=== PATIENT | female | born 1980 | race Caucasian/White ===

== ENCOUNTER 2019-08-18 13:28 | Emergency (ER) | payer SELFPAY ==
[2019-08-18 13:45] VITALS: BP 113/72
--- NOTE | 2019-08-18 13:46 | Event Note ---
ED Screening Note Date of service: 08/18/19 Time: 13:45 ED Screening Note: 39 y o f presents with right ankle pain s/p trip and twist yesterday This initial assessment/diagnostic orders/clinical plan/treatment(s) is/are subject to change based on patients health status, clinical progression and re- assessment by fellow clinical providers in the ED. Further treatment and workup at subsequent clinical providers discretion. Patient/guardian urged not to elope from the ED as their condition may be serious if not clinically assessed and managed. Initial orders include: cordell menjivar
--- NOTE | 2019-08-18 14:23 | XRay Report ---
Right ankle, 2 views INDICATION: Pain after fall. COMPARISON: None. IMPRESSION: There is moderate lateral soft tissue swelling. Normal bone mineralization. A chronic u nunited fracture is identified involving the distal tip of the fibula. There is no evidence for acute fracture. No significant joint pathology. Signer Name: Kenji Green Jr, MD Signed: 08/18/2019 2:18 PM Workstation Name: [id number]
[2019-08-18] MEDS ORDERED: HYDROmorphone 1 MG/1 ML INJ IM ONE (15:10)
[2019-08-18] MEDS ORDERED: HYDROmorphone 1 MG/1 ML INJ ONE (15:13)
[2019-08-18] MEDS ORDERED: ONDANSETRON 4 MG ODT TAB PO ONE (15:20)
[2019-08-18] MEDS ORDERED: ONDANSETRON 4 MG ODT TAB ONE (15:20)
--- NOTE | 2019-08-18 15:51 | Emergency Department Report ---
ED Extremity Problem HPI - General Chief complaint: Fall Stated complaint: POSS BROKEN ANKLE Time Seen by Provider: 08/18/19 13:45 Source: patient Mode of arrival: Ambulatory Limitations: No Limitations - History of Present Illness Initial comments: Patient is a 39-year-old female who is presenting with swelling to the right ankle. Patient states that she tripped yesterday and injured the right ankle. Patient is unable to bear weight. She has a great deal of swelling and pain is 10 out of 10 and spared. Severity scale (0 -10): 10 - Related Data Previous Rx's Medication Instructions Recorded Last Taken Type HYDROcodone/APAP 5-325 [[place] 1 each PO Q6HR PRN #14 tablet 08/18/19 Unknown Rx 5/325] Allergies Allergy/AdvReac Type Severity Reaction Status Date / Time insect venom Allergy Hives Verified 08/18/19 13:31 ketorolac [From Toradol] Allergy Hives Verified 08/18/19 13:31 latex Allergy Hives Verified 08/18/19 13:31 prednisone Allergy Hives Verified 08/18/19 13:31 tramadol Allergy Hives Verified 08/18/19 13:31 ED Review of Systems ROS: Stated complaint: POSS BROKEN ANKLE Other details as noted in HPI Comment: Unobtainable due to pts medical conditions Constitutional: denies: chills, fever Eyes: denies: eye pain, eye discharge, vision change ENT: denies: ear pain, throat pain Respiratory: denies: cough, shortness of breath, wheezing Cardiovascular: denies: chest pain, palpitations Endocrine: no symptoms reported Gastrointestinal: denies: abdominal pain, nausea, diarrhea Genitourinary: denies: urgency, dysuria, discharge Musculoskeletal: denies: back pain, joint swelling, arthralgia Skin: denies: rash, lesions Neurological: denies: headache, weakness, paresthesias Psychiatric: denies: anxiety, depression Hematological/Lymphatic: denies: easy bleeding, easy bruising ED Past Medical Hx - Past Medical History Additional medical history: 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 - Surgical History Additional Surgical History: HYSTERECTOMY - Social History Smoking Status: Never Smoker Substance Use Type: None - Medications Home Medications: Home Medications Medication Instructions Recorded Confirmed Last Taken Type HYDROcodone/APAP 5-325 [[place] 1 each PO Q6HR PRN #14 tablet 08/18/19 Unknown Rx 5/325] ED Physical Exam - General Limitations: No Limitations General appearance: alert, in no apparent distress - Head Head exam: Present: atraumatic, normocephalic - Eye Eye exam: Present: normal appearance - ENT ENT exam: Present: mucous membranes moist - Neck Neck exam: Present: normal inspection - Respiratory Respiratory exam: Present: normal lung sounds bilaterally. Absent: respiratory distress, wheezes, rales, rhonchi - Cardiovascular Cardiovascular Exam: Present: regular rate, normal rhythm, normal heart sounds. Absent: systolic murmur, diastolic murmur, rubs, gallop - GI/Abdominal GI/Abdominal exam: Present: soft, normal bowel sounds. Absent: distended, tenderness, guarding, rebound - Extremities Exam Extremities exam: Present: normal inspection - Expanded Lower Extremity Exam Right Ankle exam: Present: tenderness, swelling, ecchymosis - Back Exam Back exam: Present: normal inspection - Neurological Exam Neurological exam: Present: alert, oriented X3 - Psychiatric Psychiatric exam: Present: normal affect, normal mood - Skin Skin exam: Present: warm, dry, intact, normal color. Absent: rash ED Course Vital Signs 08/18/19 08/18/19 13:43 15:16 Temperature 97.9 F Pulse Rate 90 Respiratory 18 18 Rate Blood Pressure 113/72 O2 Sat by Pulse 98 Oximetry ED Medical Decision Making - Radiology Data [facility] [address] [place] [address] XRay Report Signed Patient: TONY KHALIL MR#: [id number] : 1980 Acct:[id number] Age/Sex: 39 / F ADM Date: 08/18/19 Loc: ED Attending Dr: Ordering Physician: MARGARITA MARTÍNEZ Date of Service: 08/18/19 Procedure(s): XR ankle 2V RT Accession Number(s): [id number] cc: MARGARITA MARTÍNEZ Fluoro Time In Minutes: Right ankle, 2 views INDICATION: Pain after fall. COMPARISON: None. IMPRESSION: There is moderate lateral soft tissue swelling. Normal bone mineralization. A chronic ununited fracture is identified involving the distal tip of the fibula. There is no evidence for acute fracture. No significant joint pathology. Signer Name: Kenji Green Jr, MD Signed: 08/18/2019 2:18 PM Workstation Name: [id number] Transcribed By: TTR Dictated By: KENJI GREEN JR, MD Electronically Authenticated By: KENJI GREEN JR, MD Signed Date/Time: 08/18/19 1418 - Medical Decision Making Patient's x-ray was read as a probable old fracture however the patient is adamant that she is never had a fracture of this ankle. Patient clinically does have a great deal of swelling with ecchymosis. Patient will be splinted and will follow-up with orthopedics. Critical care attestation.: If time is entered above; I have spent that time in minutes in the direct care of this critically ill patient, excluding procedure time. ED Disposition Clinical Impression: Fracture of distal fibula Qualifiers: Encounter type: initial encounter Fracture type: closed Fracture morphology: other fracture Laterality: right Qualified Code(s): S82.831A - Other fracture of upper and lower end of right fibula, initial encounter for closed fracture Disposition: DC-01 TO HOME OR SELFCARE Is pt being admited?: No Does the pt Need Aspirin: No Condition: Stable Instructions: Ankle Fracture (ED) Referrals: DARWIN MONTERO MD [Staff Physician] - 3-5 Days Time of Disposition: 15:55
== END 2019-08-18 16:27 | disposition home or self-care (01) ==
LOC: ED 13:28
DX: S82.831A Other fracture of upper and lower end of right fibula, initial encounter for closed fracture (principal); Z90.710 Acquired absence of both cervix and uterus; Z91.038 Other insect allergy status; Z88.6 Allergy status to analgesic agent; Z91.040 Latex allergy status; Z88.8 Allergy status to other drugs, medicaments and biological substances; W01.0XXA Fall on same level from slipping, tripping and stumbling without subsequent striking against object, initial encounter; Y93.89 Activity, other specified; Y92.89 Other specified places as the place of occurrence of the external cause; Y99.8 Other external cause status
CPT/HCPCS: 29515; 73600; 96372; 99283; J1170; Q0162